=== PATIENT | male | born 1985 | race Hispanic/Latino ===

== ENCOUNTER 2017-07-02 00:21 | Emergency (ER) | payer OTHER, SELFPAY ==
[2017-07-02] MEDS ORDERED: HYDROcodone/Acetaminophen 5/325 mg Tablet ONE (03:05)
--- NOTE | 2017-07-02 07:51 | RAD ---
RIGHT TIBIA FIBULA 2 VIEWS: HISTORY: Fracture. COMPARISON: None. FINDINGS: There is a distal tibial spiral fracture as well as a proximal fibular neck spiral fracture. No sign ificant joint effusion appreciated. IMPRESSION: Minimally displaced fibular neck spiral fracture and distal tibial spiral fractures. POS: [facility]
== END 2017-07-02 03:10 | disposition home or self-care (01) ==
LOC: ERS 00:21
DX: S82.441A Displaced spiral fracture of shaft of right fibula, initial encounter for closed fracture (principal); S82.301A Unspecified fracture of lower end of right tibia, initial encounter for closed fracture; F17.210 Nicotine dependence, cigarettes, uncomplicated; Z79.899 Other long term (current) drug therapy; W18.30XA Fall on same level, unspecified, initial encounter; Y93.66 Activity, soccer

== ENCOUNTER 2017-07-10 10:47 | Day surgery (SDC) | payer OTHER ==
[2017-07-09 10:41] VITALS: BMI 24.3
[2017-07-10] MEDS ORDERED: CEFAZOLIN/Water 2 GM/20 ML SYRINGE ONE (11:17)
[2017-07-10] MEDS ORDERED: Fentanyl 250 MCG/5 ML VIAL ONE ×2 (11:31→15:00)
[2017-07-10] MEDS ORDERED: Midazolam HCl 2 mg/2 ml Vial ONE (11:31)
[2017-07-10] MEDS ORDERED: Dexamethasone 4 mg/ml Vial ONE (11:55)
[2017-07-10] MEDS ORDERED: Bupivacaine HCl 0.5%/Epinephrine 1:200,000/PF 30 ml Vial ONE (13:51)
[2017-07-10] MEDS ORDERED: Ketorolac Tromethamine 30 MG/ML VIAL ONE (13:52)
[2017-07-10] MEDS ORDERED: Lidocaine 1% PF 5 ML VIAL ONE (13:52)
[2017-07-10] MEDS ORDERED: PROPOFOL 200 MG/20 ML VIAL ONE (13:52)
[2017-07-10] MEDS ORDERED: Dexamethasone 20 MG/5 ML VIAL ONE (13:52)
[2017-07-10] MEDS ORDERED: Ondansetron HCl/PF 4 MG/2 ML Vial ONE (13:52)
[2017-07-10] MEDS ORDERED: Morphine 2 MG/ML SYRINGE ONE (14:50)
--- NOTE | 2017-07-10 15:39 | RAD ---
INTRAOPERATIVE FLUOROSCOPY: History: Distal fibular fracture. Comparison: 07-02-17 FINDINGS: Intraoperative fluoroscopy is provided for Dr. Rodriguez. A total of six fluoroscopic images demonstra te placement on intramedullary debora with a single proximal and two distal interlocking screws. Fractur e lucency is identified. IMPRESSION: Fluoroscopy as above. POS: [facility]
[2017-07-10] MEDS ORDERED: HYDROcodone/Acetaminophen 5/325 mg Tablet ONE (16:31)
--- NOTE | 2017-07-11 10:30 | OP ---
DATE OF SURGERY: 07/10/2017 PREOPERATIVE DIAGNOSIS: Closed right tibia-fibula fracture. POSTOPERATIVE DIAGNOSIS: Closed right tibia-fibula fracture. SURGICAL PROCEDURE: Intramedullary nail stabilization of right tibial shaft. ANESTHESIA: General. SURGEON: Dr. Obi Rodriguez. ANCHORMAN: Trey Tolbert PA-C. TOURNIQUET TIME: Zero. BLOOD LOSS: 100 mL. IMPLANTS: Synthes 10 x 345 mm x nail with 3 cross-lock screws. COMPLICATIONS: None. DRAINS: None. SPECIMEN: None. OUTCOME: Satisfactory. INDICATIONS: Patient is a pleasant 32-year-old gentleman, status post twisting injury of right lower extremity while playing soccer, in which he sustained a short spiral fracture of the distal tibial s haft and a proximal fibular neck fracture. He was initially seen and evaluated in 2 different emergency rooms, placed in a splint and then prese nted to my office for evaluation. The patient was having quite a bit of pain and did have some mild malalignment, and as such, we have recommended proceeding with intramedullary nail stabilization. In formed consent has been obtained. I believe all questions answered. PROCEDURE: After the induction of general anesthesia, the patient was positioned supine on the OR ta ble and then a sterile prep and drape was performed of the right lower extremity. Next, the limb was draped over a triangular radiolucent leg martell. A midline anterior knee incision was made over the patellar tendon. After skin was sharply incised, dissection was carried down bluntly to the periten on. The peritenon was incised in line with the skin incision and then the patellar tendon exposed. The tendon was reflected laterally to gain access to the proximal tibia. Next, a threaded guidewire was placed at an appropriate starting point and into the proximal tibial canal. The opening reamer w as then passed over this threaded guidewire. Next, a ball-tip guidewire was passed down the shaft of the tibia across the fracture in the distal tibial metaphysis. This ball-tipped guidewire placement was checked on both AP and lateral C-arm images. Next, reaming was started at 8.5 and continued up to 11.5 with chatter appreciated at about 10 mm. This was then followed by insertion of a 10 x 345 m m nail. Under C-arm guidance, the nail was driven into the distal tibial metaphysis and then 2 small cross-lock screws were placed from medial to lateral through 2 small incisions. Once these were hosea ropriately positioned, the fracture was again checked with C-arm imaging and then a single proximal c ross-lock screw was applied from medial to lateral, again through a small stab wound and using the ou trigger jig. At the completion of this, the jig was removed from the proximal nail. AP and lateral C-arm images were obtained to confirm appropriate position of hardware and acceptable alignment and r eduction of the fracture. The wounds were then irrigated with bulb syringe and closed in layers ante riorly with 0 Vicryl deep, followed by 2-0 Vicryl and then adonis. Each of the 3 small cross-lock i ncision sites were closed with adonis. A Xeroform gauze, Webril, and fiberglass splint was applied to the leg and then patient was transferred to recovery room in stable condition. There were no comp lications. He tolerated the procedure well.
== END 2017-07-10 17:05 | disposition home or self-care (01) ==
LOC: SDC 10:47
PROVIDERS: ATTEND Orthopaedic Surgery
PROC: 0QSJ06Z Reposition Right Fibula with Intramedullary Internal Fixation Device, Open Approach (ICD-10-PCS; principal; 2017-07-10)
PROC: 0QSG06Z Reposition Right Tibia with Intramedullary Internal Fixation Device, Open Approach (ICD-10-PCS; principal; 2017-07-10)
DX: S82.301A Unspecified fracture of lower end of right tibia, initial encounter for closed fracture (principal); S82.401A Unspecified fracture of shaft of right fibula, initial encounter for closed fracture; Y93.66 Activity, soccer
CPT/HCPCS: 76001; 96374; C1713; C1769; J0670; J1100; J1885; J2001; J2250; J2270; J2405; J2704; J3010

== ENCOUNTER 2022-07-15 07:16 | Inpatient (IN) | payer OTHER, SELFPAY ==
[2022-07-15] MEDS ORDERED: Ondansetron PF 4 MG/2 ML Vial ONE (07:53)
[2022-07-15] MEDS ORDERED: Morphine 4 MG/ML VIAL ONE ×2 (07:53→09:53)
[2022-07-15 08:16] LABS: #Lymphocytes 1.1 thou/uL (1.20-3.40); #Monocytes 0.7 thou/uL (0.11-0.59); #Neutrophils 7.6 thou/uL (1.40-6.50); %Basophils 0.3 % (0.0-1.0); %Eosinophils 0.2 % (0.0-10.0); %Lymphocytes 11.5 % (21.0-51.0); %Monocytes 7.2 % (0.0-10.0); %Neutrophils 80.8 % (42.0-75.0); Hemoglobin 17.5 g/dL (14.0-18.0); Mean Corpuscular HGB CONC 33.4 g/dL (32.0-36.0); Mean Corpuscular Hemoglobin 32.4 pg (27.0-31.0); Mean Corpuscular Volume 96.9 fl (78.0-98.0); Mean Platelet Volume 8.3 fL (7.4-10.4); Platelet Count 238 10x3/uL (130-400); RBC Distribution Width 11.8 % (11.5-14.5); Red Blood Cell (RBC) Count 5.42 mill/uL (4.70-6.10); White Blood Cell (WBC) Count 9.4 10x3/uL (4.8-10.8)
[2022-07-15 08:40] LABS: ALT (SGPT) 16 U/L (8-55); AST (SGOT) 19 U/L (5-34); Albumin 4.6 g/dL (3.5-5.0); Alkaline Phosphatase 60 U/L (40-110); Anion Gap 15 mmol/L (10-20); BUN (Urea Nitrogen) 8 mg/dL (8.9-20.6); Bilirubin, Total 0.9 mg/dL (0.2-1.2); CK (CPK) 177 U/L (30-200); Calc. Creatinine Clearance 0 mL/min (70-130); Calcium 10.1 mg/dL (7.8-10.44); Carbon Dioxide 26 mmol/L (22-29); Chloride 102 mmol/L (98-107); Estimated GFR 113; Glucose 104 mg/dL (70-105); Lipase 25 U/L (8-78); Protein, Total 7.6 g/dL (6.0-8.3); Sodium 139 mmol/L (136-145)
[2022-07-15 08:41] LABS: Acetaminophen Less than 10.0 mcg/mL (10.0-30.0); Alcohol Less than 10 mg/dL (Less than 10); Salicylate Less than 8.0 mg/dL (15.0-30.0)
[2022-07-15] MEDS ORDERED: FENTANYL 50 MCG/ML 1 ML VIAL ONE (10:44)
[2022-07-15] MEDS ORDERED: hydrALAZINE 20 MG/ML VIAL SLOW IVP PRN (11:42)
[2022-07-15] MEDS ORDERED: Dextrose 50% Abboject 50 ML SYRINGE SLOW IVP PRN (11:42)
[2022-07-15] MEDS ORDERED: Ipratropium/Albuterol 3 ML NEB NEB PRN (11:42)
[2022-07-15] MEDS ORDERED: Dextrose 5% in Water 1,000 ML IV PRN (11:42)
[2022-07-15] MEDS: Lactated Ringer's 1,000 ML IV SCH ×2 (12:19→18:09)
[2022-07-15] MEDS: Morphine 4 MG/ML VIAL SLOW IVP PRN ×4 (12:19→20:35)
[2022-07-15] MEDS: Ketorolac Tromethamine 30 MG/ML VIAL IVP PRN ×2 (12:19→18:03)
[2022-07-15 12:55] VITALS: BMI 28.2
[2022-07-15] MEDS ORDERED: ISOVUE-370 76%-LOCM 500 ML MDV (1 ML CHARGE) ONE (15:15)
[2022-07-15] MEDS ORDERED: Aspirin/APAP/Caffeine Tab (Excedrin Migraine) PO SCH (20:15)
[2022-07-15] MEDS: Famotidine/PF 20 mg/2ml Vial SLOW IVP SCH (20:29)
[2022-07-16] MEDS: Famotidine 20 MG TAB PO SCH ×2 (00:26→11:59)
[2022-07-16] MEDS: Morphine 4 MG/ML VIAL SLOW IVP PRN ×4 (00:43→20:37)
[2022-07-16] MEDS: Ketorolac Tromethamine 30 MG/ML VIAL IVP PRN ×3 (00:44→18:19)
[2022-07-16] MEDS: Lactated Ringer's 1,000 ML IV SCH ×3 (05:34→20:34)
[2022-07-16 07:36] LABS: #Eosinphils 0.1 thou/uL (0.0-0.7); #Lymphocytes 1.6 thou/uL (1.20-3.40); #Monocytes 0.6 thou/uL (0.11-0.59); #Neutrophils 4.3 thou/uL (1.40-6.50); %Basophils 0.6 % (0.0-1.0); %Eosinophils 1.1 % (0.0-10.0); %Lymphocytes 23.7 % (21.0-51.0); %Monocytes 9.1 % (0.0-10.0); %Neutrophils 65.5 % (42.0-75.0); Hemoglobin 14.1 g/dL (14.0-18.0); Mean Corpuscular HGB CONC 33.5 g/dL (32.0-36.0); Mean Corpuscular Hemoglobin 32.8 pg (27.0-31.0); Mean Platelet Volume 8.3 fL (7.4-10.4); Platelet Count 166 10x3/uL (130-400); RBC Distribution Width 11.7 % (11.5-14.5); Red Blood Cell (RBC) Count 4.28 mill/uL (4.70-6.10); White Blood Cell (WBC) Count 6.6 10x3/uL (4.8-10.8)
[2022-07-16 07:51] LABS: Anion Gap 10 mmol/L (10-20); BUN (Urea Nitrogen) 6 mg/dL (8.9-20.6); Calc. Creatinine Clearance 142 mL/min (70-130); Calcium 8.5 mg/dL (7.8-10.44); Carbon Dioxide 27 mmol/L (22-29); Chloride 108 mmol/L (98-107); Estimated GFR 117; Glucose 87 mg/dL (70-105); Potassium 4.3 mmol/L (3.5-5.1); Sodium 141 mmol/L (136-145)
[2022-07-16] MEDS: Famotidine/PF 20 mg/2ml Vial SLOW IVP SCH ×2 (08:19→20:34)
[2022-07-16] MEDS: Ondansetron PF 4 MG/2 ML Vial IVP PRN (12:30)
[2022-07-16] MEDS ORDERED: MD-Gastroview 120 ML BOT ONE (15:28)
[2022-07-17] MEDS: Famotidine 20 MG TAB PO SCH ×3 (00:54→20:32)
[2022-07-17] MEDS: Morphine 4 MG/ML VIAL SLOW IVP PRN ×6 (02:56→20:24)
[2022-07-17] MEDS: Lactated Ringer's 1,000 ML IV SCH ×3 (02:57→20:28)
[2022-07-17] MEDS: Ketorolac Tromethamine 30 MG/ML VIAL IVP PRN ×3 (03:02→16:35)
[2022-07-17] MEDS: Famotidine/PF 20 mg/2ml Vial SLOW IVP SCH ×2 (09:34→20:25)
[2022-07-17] MEDS: Ondansetron PF 4 MG/2 ML Vial IVP PRN (09:34)
[2022-07-18] MEDS: Morphine 4 MG/ML VIAL SLOW IVP PRN ×4 (02:11→22:04)
[2022-07-18] MEDS: Lactated Ringer's 1,000 ML IV SCH ×4 (06:04→22:08)
[2022-07-18] MEDS: Ketorolac Tromethamine 30 MG/ML VIAL IVP PRN ×3 (06:28→20:01)
[2022-07-18] MEDS: Famotidine 20 MG TAB PO SCH (08:33)
[2022-07-18] MEDS: Famotidine/PF 20 mg/2ml Vial SLOW IVP SCH ×2 (08:33→20:01)
[2022-07-18] MEDS: Simethicone Chewable 80 MG TAB PO PRN (17:55)
[2022-07-18] MEDS: Ondansetron PF 4 MG/2 ML Vial IVP PRN (19:36)
[2022-07-19] MEDS: Ketorolac Tromethamine 30 MG/ML VIAL IVP PRN ×2 (01:38→07:37)
[2022-07-19] MEDS: Famotidine 20 MG TAB PO SCH ×3 (02:51→20:09)
[2022-07-19] MEDS: Ondansetron PF 4 MG/2 ML Vial IVP PRN ×2 (04:47→17:06)
[2022-07-19] MEDS: Morphine 4 MG/ML VIAL SLOW IVP PRN ×6 (05:03→20:32)
[2022-07-19] MEDS: Famotidine/PF 20 mg/2ml Vial SLOW IVP SCH ×2 (09:09→20:09)
[2022-07-19] MEDS: Lactated Ringer's 1,000 ML IV SCH ×3 (09:09→17:12)
[2022-07-19] MEDS: Simethicone Chewable 80 MG TAB PO PRN (12:27)
[2022-07-19] MEDS: Promethazine HCl 25 MG/ML VIAL IM PRN (21:08)
[2022-07-20] MEDS: Morphine 4 MG/ML VIAL SLOW IVP PRN ×6 (00:14→18:15)
[2022-07-20] MEDS: Ondansetron PF 4 MG/2 ML Vial IVP PRN ×2 (00:20→15:44)
[2022-07-20] MEDS: Lactated Ringer's 1,000 ML IV SCH ×3 (04:55→20:11)
[2022-07-20] MEDS: Simethicone Chewable 80 MG TAB PO PRN ×2 (05:23→18:14)
[2022-07-20] MEDS: Promethazine HCl 25 MG/ML VIAL IM PRN ×2 (05:24→20:10)
[2022-07-20 06:37] LABS: Hemoglobin 14.5 g/dL (14.0-18.0); Mean Corpuscular HGB CONC 34.2 g/dL (32.0-36.0); Mean Corpuscular Hemoglobin 32.7 pg (27.0-31.0); Mean Corpuscular Volume 95.5 fl (78.0-98.0); Mean Platelet Volume 7.8 fL (7.4-10.4); Platelet Count 214 10x3/uL (130-400); RBC Distribution Width 11.5 % (11.5-14.5); Red Blood Cell (RBC) Count 4.43 mill/uL (4.70-6.10); White Blood Cell (WBC) Count 3.6 10x3/uL (4.8-10.8)
[2022-07-20 06:55] LABS: Anion Gap 16 mmol/L (10-20); BUN (Urea Nitrogen) 9 mg/dL (8.9-20.6); Calc. Creatinine Clearance 134 mL/min (70-130); Calcium 8.6 mg/dL (7.8-10.44); Carbon Dioxide 25 mmol/L (22-29); Chloride 102 mmol/L (98-107); Estimated GFR 115; Glucose 92 mg/dL (70-105); Potassium 3.5 mmol/L (3.5-5.1); Sodium 139 mmol/L (136-145)
[2022-07-20 09:15] LABS: Band 29 % (5-11); Lymphocytes 11 % (21-51); MDiff Complete? YES; Monocytes 9 % (0-10); Neutrophil 20 % (42-75); Platelet Morphology Comment Appears Adequate; RBC Morphology Normal; Reactive Lymphocytes 30 % (0-10)
[2022-07-20] MEDS: Famotidine 20 MG TAB PO SCH ×2 (09:19→20:10)
[2022-07-20] MEDS: Famotidine/PF 20 mg/2ml Vial SLOW IVP SCH ×2 (09:21→20:10)
[2022-07-21] MEDS: Ondansetron PF 4 MG/2 ML Vial IVP PRN ×3 (00:02→16:32)
[2022-07-21] MEDS: Morphine 4 MG/ML VIAL SLOW IVP PRN ×7 (00:02→23:33)
[2022-07-21] MEDS: Lactated Ringer's 1,000 ML IV SCH ×3 (03:54→21:42)
[2022-07-21] MEDS: Promethazine HCl 25 MG/ML VIAL IM PRN ×2 (05:50→20:37)
[2022-07-21] MEDS: Famotidine 20 MG TAB PO SCH ×2 (08:50→20:02)
[2022-07-21] MEDS: Famotidine/PF 20 mg/2ml Vial SLOW IVP SCH ×2 (09:42→20:02)
[2022-07-21] MEDS ORDERED: MD-Gastroview 120 ML BOT ONE (11:41)
[2022-07-21 14:16] LABS: Hemoglobin 16.3 g/dL (14.0-18.0); Mean Corpuscular HGB CONC 32.7 g/dL (32.0-36.0); Mean Corpuscular Hemoglobin 32.3 pg (27.0-31.0); Mean Corpuscular Volume 98.6 fl (78.0-98.0); Mean Platelet Volume 9.4 fL (7.4-10.4); Platelet Count 160 10x3/uL (130-400); RBC Distribution Width 11.6 % (11.5-14.5); Red Blood Cell (RBC) Count 5.04 mill/uL (4.70-6.10); White Blood Cell (WBC) Count 6.6 10x3/uL (4.8-10.8)
[2022-07-21 14:53] LABS: Band 5 % (5-11); Lymphocytes 28 % (21-51); MDiff Complete? YES; Monocytes 6 % (0-10); Neutrophil 61 % (42-75); Platelet Morphology Comment Appears Adequate; RBC Morphology Normal
[2022-07-22] MEDS: Lactated Ringer's 1,000 ML IV SCH ×4 (04:59→20:56)
[2022-07-22] MEDS: Morphine 4 MG/ML VIAL SLOW IVP PRN ×4 (05:33→17:14)
[2022-07-22] MEDS: Famotidine 20 MG TAB PO SCH ×2 (09:27→21:14)
[2022-07-22] MEDS: Famotidine/PF 20 mg/2ml Vial SLOW IVP SCH ×2 (09:27→20:58)
[2022-07-22] MEDS: Ondansetron PF 4 MG/2 ML Vial IVP PRN ×2 (09:57→17:21)
[2022-07-22] MEDS ORDERED: Polyethylene Glycol 3350 17 GM Packet PO PRN (10:11)
[2022-07-22] MEDS ORDERED: Docusate 100 MG CAP PO PRN (10:11)
[2022-07-22] MEDS: Promethazine HCl 25 MG/ML VIAL IM PRN (15:39)
[2022-07-22] MEDS: Simethicone Chewable 80 MG TAB PO PRN (17:16)
[2022-07-22] MEDS: Ketorolac Tromethamine 30 MG/ML VIAL IVP PRN (18:01)
[2022-07-22] MEDS: Acetaminophen 500 MG TAB PO PRN (19:22)
[2022-07-23] MEDS: Morphine 4 MG/ML VIAL SLOW IVP PRN ×4 (00:19→20:02)
[2022-07-23] MEDS: Lactated Ringer's 1,000 ML IV SCH ×3 (05:29→22:25)
[2022-07-23] MEDS: Ketorolac Tromethamine 30 MG/ML VIAL IVP PRN ×2 (07:21→16:16)
[2022-07-23] MEDS: Ondansetron PF 4 MG/2 ML Vial IVP PRN ×2 (07:22→16:22)
[2022-07-23] MEDS: Acetaminophen 500 MG TAB PO PRN (09:24)
[2022-07-23] MEDS: Famotidine/PF 20 mg/2ml Vial SLOW IVP SCH ×2 (09:26→20:02)
[2022-07-23] MEDS: Famotidine 20 MG TAB PO SCH ×2 (09:26→20:13)
[2022-07-23] MEDS: Promethazine HCl 25 MG/ML VIAL IM PRN (20:03)
[2022-07-24] MEDS: Ketorolac Tromethamine 30 MG/ML VIAL IVP PRN ×2 (03:43→09:20)
[2022-07-24] MEDS: Lactated Ringer's 1,000 ML IV SCH ×2 (05:20→12:33)
[2022-07-24] MEDS: Famotidine/PF 20 mg/2ml Vial SLOW IVP SCH ×2 (09:20→19:55)
[2022-07-24] MEDS: Famotidine 20 MG TAB PO SCH (09:25)
[2022-07-24] MEDS: Ondansetron PF 4 MG/2 ML Vial IVP PRN ×2 (10:22→19:49)
[2022-07-24] MEDS: Morphine 4 MG/ML VIAL SLOW IVP PRN ×3 (12:08→23:41)
[2022-07-24] MEDS ORDERED: Midazolam HCl 2 mg/2 ml Vial ONE (14:14)
[2022-07-24] MEDS ORDERED: FENTANYL 50 MCG/ML 1 ML VIAL ONE ×3 (14:14→18:12)
[2022-07-24] MEDS ORDERED: Bupivacaine PF 0.5% 30 ML VIAL ONE (14:15)
[2022-07-24] MEDS ORDERED: SUGAMMADEX SODIUM 200 MG/2 ML VIAL ONE (14:42)
[2022-07-24] MEDS ORDERED: Famotidine/PF 20 mg/2ml Vial ONE (14:42)
[2022-07-24] MEDS ORDERED: Ondansetron PF 4 MG/2 ML Vial ONE ×2 (14:42→15:01)
[2022-07-24] MEDS ORDERED: fentaNYL PF 100 MCG/2 ML SYRINGE ONE (14:42)
[2022-07-24] MEDS ORDERED: Rocuronium Bromide 10 MG/ML (10ML VIAL) ONE (15:01)
[2022-07-24] MEDS ORDERED: Ketorolac Tromethamine 30 MG/ML VIAL ONE (15:01)
[2022-07-24] MEDS ORDERED: Lidocaine 1% PF 5 ML VIAL ONE (15:01)
[2022-07-24] MEDS ORDERED: Bupivacaine HCl 0.5%/Epinephrine 1:200,000/PF 30 ml Vial ONE (15:01)
[2022-07-24] MEDS ORDERED: PROPOFOL 200 MG/20 ML VIAL ONE (15:01)
[2022-07-24] MEDS ORDERED: Dexamethasone 20 MG/5 ML VIAL ONE (15:01)
[2022-07-24] MEDS ORDERED: Succinylcholine Chloride 100 MG/5 ML SYRINGE FS ONE (15:01)
[2022-07-24] MEDS ORDERED: Ondansetron HCl/PF 4 MG/2 ML Vial IVP PRN (17:04)
[2022-07-24] MEDS ORDERED: Promethazine HCl 25 MG/ML VIAL IM PRN (17:04)
[2022-07-24] MEDS ORDERED: HYDROmorphone 2 MG/ML VIAL SLOW IVP PRN (17:04)
[2022-07-24] MEDS ORDERED: HYDROmorphone 0.5 MG/0.5 ML SYRINGE ONE ×4 (17:18→17:49)
[2022-07-24] MEDS ORDERED: Ketorolac Tromethamine 30 MG/ML VIAL IVP SCH ×2 (18:00→23:00)
[2022-07-24] MEDS: D5 1/2 NS w/20 mEq KCL 1,000 ML IV SCH (19:50)
[2022-07-25] MEDS: Morphine 4 MG/ML VIAL SLOW IVP PRN ×4 (01:48→08:04)
[2022-07-25] MEDS: D5 1/2 NS w/20 mEq KCL 1,000 ML IV SCH ×4 (01:52→20:50)
[2022-07-25 06:41] LABS: Hemoglobin 14.8 g/dL (14.0-18.0); Mean Corpuscular HGB CONC 32.8 g/dL (32.0-36.0); Mean Corpuscular Hemoglobin 31.4 pg (27.0-31.0); Mean Corpuscular Volume 95.9 fl (78.0-98.0); Mean Platelet Volume 7.3 fL (7.4-10.4); Platelet Count 344 10x3/uL (130-400); RBC Distribution Width 11.6 % (11.5-14.5); Red Blood Cell (RBC) Count 4.72 mill/uL (4.70-6.10); White Blood Cell (WBC) Count 14.9 10x3/uL (4.8-10.8)
[2022-07-25 06:55] LABS: Anion Gap 14 mmol/L (10-20); BUN (Urea Nitrogen) 8 mg/dL (8.9-20.6); Calc. Creatinine Clearance 158 mL/min (70-130); Calcium 8.5 mg/dL (7.8-10.44); Carbon Dioxide 22 mmol/L (22-29); Chloride 103 mmol/L (98-107); Estimated GFR 121; Glucose 143 mg/dL (70-105); Potassium 3.6 mmol/L (3.5-5.1); Sodium 135 mmol/L (136-145)
[2022-07-25] MEDS: Famotidine/PF 20 mg/2ml Vial SLOW IVP SCH ×2 (08:04→20:51)
[2022-07-25] MEDS: Acetaminophen 500 MG TAB PO PRN (08:51)
[2022-07-25] MEDS ORDERED: Zolpidem Tartrate 5 MG TAB PO PRN (10:15)
[2022-07-25] MEDS ORDERED: Naloxone HCl 0.4 mg/ml Vial IV PRN (10:15)
[2022-07-25] MEDS ORDERED: diphenhydrAMINE 25 MG CAP PO PRN (10:15)
[2022-07-25] MEDS ORDERED: diphenhydrAMINE 50 MG/ML VIAL IM/IV PRN (10:15)
[2022-07-25] MEDS ORDERED: Fentanyl 100 MCG/2 ML VIAL SLOW IVP SCH (10:15)
[2022-07-25] MEDS ORDERED: FENTANYL 50 MCG/ML 1 ML VIAL SLOW IVP SCH (10:15)
[2022-07-25 10:45] LABS: Band 30 % (5-11); Lymphocytes 7 % (21-51); MDiff Complete? YES; Monocytes 1 % (0-10); Neutrophil 54 % (42-75); Platelet Morphology Comment Appears Adequate; Polychromasia SLIGHT = 2-3 cells (100X) (0-2/hpf); Reactive Lymphocytes 8 % (0-10)
[2022-07-25] MEDS: Fentanyl CADD 100 ML IVPB SCH (12:25)
[2022-07-25] MEDS: Ondansetron PF 4 MG/2 ML Vial IVP PRN (22:36)
[2022-07-26] MEDS: D5 1/2 NS w/20 mEq KCL 1,000 ML IV SCH ×4 (04:56→20:14)
[2022-07-26] MEDS: Famotidine/PF 20 mg/2ml Vial SLOW IVP SCH ×2 (09:30→20:13)
[2022-07-26] MEDS: Ondansetron PF 4 MG/2 ML Vial IVP PRN ×2 (10:51→15:45)
[2022-07-26] MEDS: Fentanyl CADD 100 ML IVPB SCH (15:45)
[2022-07-27] MEDS: Ondansetron PF 4 MG/2 ML Vial IVP PRN ×2 (04:51→14:17)
[2022-07-27] MEDS: D5 1/2 NS w/20 mEq KCL 1,000 ML IV SCH ×5 (04:54→20:39)
[2022-07-27] MEDS: Fentanyl CADD 100 ML IVPB SCH ×2 (07:02→20:39)
[2022-07-27] MEDS: Famotidine/PF 20 mg/2ml Vial SLOW IVP SCH ×2 (09:40→20:39)
[2022-07-27] MEDS: Simethicone Chewable 80 MG TAB PO PRN (12:33)
[2022-07-27] MEDS ORDERED: Nicotine 21 MG PATCH TD SCH ×2 (17:00→18:00)
[2022-07-28] MEDS: Ondansetron PF 4 MG/2 ML Vial IVP PRN ×2 (04:16→18:50)
[2022-07-28] MEDS: D5 1/2 NS w/20 mEq KCL 1,000 ML IV SCH (04:17)
[2022-07-28] MEDS: Promethazine HCl 25 MG/ML VIAL IM PRN ×2 (05:56→20:58)
[2022-07-28 07:19] LABS: #Eosinphils 0.2 thou/uL (0.0-0.7); #Monocytes 1.6 thou/uL (0.11-0.59); #Neutrophils 9.4 thou/uL (1.40-6.50); %Basophils 0.1 % (0.0-1.0); %Eosinophils 1.6 % (0.0-10.0); %Lymphocytes 8.2 % (21.0-51.0); %Neutrophils 77.1 % (42.0-75.0); Hemoglobin 14.4 g/dL (14.0-18.0); Mean Corpuscular HGB CONC 33.8 g/dL (32.0-36.0); Mean Corpuscular Hemoglobin 32.2 pg (27.0-31.0); Mean Corpuscular Volume 95.2 fl (78.0-98.0); Mean Platelet Volume 7.2 fL (7.4-10.4); Platelet Count 351 10x3/uL (130-400); RBC Distribution Width 11.8 % (11.5-14.5); Red Blood Cell (RBC) Count 4.49 mill/uL (4.70-6.10); White Blood Cell (WBC) Count 12.1 10x3/uL (4.8-10.8)
[2022-07-28 07:43] LABS: Anion Gap 10 mmol/L (10-20); BUN (Urea Nitrogen) 5 mg/dL (8.9-20.6); Calc. Creatinine Clearance 177 mL/min (70-130); Calcium 8.8 mg/dL (7.8-10.44); Carbon Dioxide 27 mmol/L (22-29); Chloride 99 mmol/L (98-107); Estimated GFR 125; Glucose 115 mg/dL (70-105); Potassium 3.5 mmol/L (3.5-5.1); Sodium 132 mmol/L (136-145)
[2022-07-28] MEDS ORDERED: Nicotine 21 MG PATCH TD SCH (09:00)
[2022-07-28] MEDS: Famotidine/PF 20 mg/2ml Vial SLOW IVP SCH (09:21)
[2022-07-28] MEDS: Nicotine 21 MG PATCH TD SCH (18:01)
[2022-07-28] MEDS: traMADol HCl 50 MG TAB PO PRN (18:48)
[2022-07-28] MEDS: Acetaminophen 500 MG TAB PO PRN (19:52)
[2022-07-28] MEDS: Simethicone Chewable 80 MG TAB PO PRN (19:52)
[2022-07-28] MEDS: HYDROcodone/Acetaminophen 7.5/325 mg Tablet PO PRN (21:32)
[2022-07-29] MEDS: HYDROcodone/Acetaminophen 7.5/325 mg Tablet PO PRN ×3 (03:41→18:26)
[2022-07-29] MEDS: Ondansetron PF 4 MG/2 ML Vial IVP PRN ×2 (03:42→12:22)
[2022-07-29] MEDS: traMADol HCl 50 MG TAB PO PRN (08:09)
[2022-07-29] MEDS: Ondansetron ODT 4 MG TAB PO PRN ×2 (13:48→18:26)
[2022-07-29] MEDS: Simethicone Chewable 80 MG TAB PO PRN ×2 (13:49→23:23)
[2022-07-29] MEDS: Nicotine 21 MG PATCH TD SCH (19:15)
[2022-07-30] MEDS: HYDROcodone/Acetaminophen 7.5/325 mg Tablet PO PRN ×2 (04:55→11:42)
[2022-07-30] MEDS: Ondansetron ODT 4 MG TAB PO PRN (04:55)
[2022-07-30 15:28] VITALS: BP 120/79; TEMP 98.3
== END 2022-07-30 15:56 | disposition home or self-care (01) | DRG 331 ==
LOC: ERS 07:16 → SURG B 11:13
PROVIDERS: ADMIT Surgery; ATTEND Surgery
PROC: 0DN80ZZ Release Small Intestine, Open Approach (ICD-10-PCS; principal; 2022-07-24)
PROC: 0DB80ZZ Excision of Small Intestine, Open Approach (ICD-10-PCS; 2022-07-24)
DX: K56.51 Intestinal adhesions [bands], with partial obstruction (principal); K56.7 Ileus, unspecified; Z20.822 Contact with and (suspected) exposure to COVID-19; F17.210 Nicotine dependence, cigarettes, uncomplicated; Z98.890 Other specified postprocedural states; Z90.49 Acquired absence of other specified parts of digestive tract
CPT/HCPCS: 36415; 43752; 74018; 74177; 74250; 80048; 80053; 80307; 82550; 83690; 85025; 85060; 87811; 88307; 93005; 96361; 96374; 96375; 96376; A4649; J1100; J1170; J1885; J2250; J2270; J2405; J2550; J2704; J3010; J3480; J7120; Q0162; Q9963; Q9966; S0020; S0028; U0003; U0005